=== PATIENT | female | born 1990 | race American Indian/Alaskan Native ===

== ENCOUNTER 2018-04-02 06:09 | Day surgery (SDC) | payer MEDICAID ==
[2018-03-30 07:58] VITALS: BMI 45.5
[2018-04-02] MEDS ORDERED: Lidocaine 2% MPF (5 ml) Inj ONE (07:29)
[2018-04-02] MEDS ORDERED: Bupivacaine 0.25% 20 ML INJ IJ ONE (07:30)
[2018-04-02] MEDS ORDERED: ceFAZolin IV 2 gm in Dextrose 2 GM/50 ML BAG IVPB ONE (07:40)
[2018-04-02] MEDS ORDERED: Lactated Ringer's 1,000 ML IV ONE (08:00)
[2018-04-02] MEDS ORDERED: Propofol 10 mg/ml Inj (20 ML) ONE (08:01)
[2018-04-02] MEDS ORDERED: Midazolam 2 MG/2 ML VIAL ONE ×2 (08:01→08:43)
[2018-04-02] MEDS ORDERED: Dexamethasone 4 mg/1 ml ONE (08:43)
--- NOTE | 2018-04-02 09:06 | PCM.SURG1 ---
Surgeon's Initial Post Op Note - Surgeon's Notes Surgeon: Dr. Mathew London Milk Processing Worker: Dr. Sue PGY-3, Dr. Morales PGY-1 Type of Anesthesia: IV Sedation, Local Anesthesia Administered By: Liz Perez Pre-Operative Diagnosis: right foot hallux valgus deformity Operative Findings: see dictation. 3-0, 4-0 vicryl, 4-0 nylon. 16CC 2% lidocaine, 8 CC 0.5%marcaine plain, 1CC dex 4mg/kg Post-Operative Diagnosis: same Operation Performed: right foot bunionectomy Specimen/Specimens Removed: bone Estimated Blood Loss: EBL {In ML}: 2 Blood Products Given: N/A Drains Used: No Drains Post-Op Condition: Good Date of Surgery/Procedure: 04/02/18 Time of Surgery/Procedure: 09:06
[2018-04-02] MEDS ORDERED: HYDROmorphone 0.5 mg/0.5 ml ISec IVP PRN (09:10)
[2018-04-02] MEDS ORDERED: Oxycodone/Acetaminophen 5/325 mg Tab PO PRN (09:15)
[2018-04-02 11:07] VITALS: TEMP 97.6
--- NOTE | 2018-04-02 12:06 | RAD ---
Date of service: 04/02/2018 PROCEDURE: Right Foot Radiographs. HISTORY: s/p right foot surgery COMPARISON: None. FINDINGS: BONES: Normal. No fracture. JOINTS: Normal. SOFT TISSUES: Subcutaneous air identified at the level of the digits. Adjacent soft tissue swelling noted. OTHER FINDINGS: None. IMPRESSION: Postoperative findings identified.
[2018-04-02 12:22] VITALS: BP 135/73; PULSE 72; RESP 18; O2SAT 99
--- NOTE | 2018-04-03 19:26 | OP ---
Copied To: Valery Sue DPM Attending MD: Mathew London DPM PROCEDURE DATE: 04/02/2018 SURGEON: Mathew London DPM. AUTOMOTIVE SALESPERSON: Valery Sue, PGY-3, Edward Orozco MD, PGY-1. DELIVERY DIRECTOR: Clara Chen MD . ANESTHESIA: IV sedation with local. PREOPERATIVE DIAGNOSIS: Right foot painful hallux valgus deformity. POSTOPERATIVE DIAGNOSIS: Right foot painful hallux valgus deformity. NAME OF PROCEDURE: Right foot first metatarsal osteotomy with cutting of soft tissue and bone. INDICATIONS: The patient is a 27-year-old female with the above-mentioned diagnosis. The patient has exhausted multiple forms of conservative treatment at this time and now requires surgical intervention. The patient signed a consent after careful explanation of risks, benefits, complications, and alternatives for surgical procedure. No guarantees were given nor implied. The patient was brought into the operating room and placed on the operating room table in a supine position. A time-out was performed for identification of the correct patient and procedure. The patient received a total of 16 mL of 2% lidocaine plain in a local block-type fashion to the right foot. Once local anesthesia was achieved, the right foot was then prepped and draped in normal sterile manner and the procedure began. DESCRIPTION OF PROCEDURE: Attention was directed to the dorsal aspect of the first metatarsal head of the right foot, where an approximately 4 cm linear longitudinal incision was made medial and parallel to the tendon of the extensor hallucis longus involving the contour of the deformity. The incision was deepened through subcutaneous tissue with care being taken to identify and retract all vital neurovascular structures. All bleeders were cauterized and ligated as necessary. At this time, an inverted L-type capsulotomy was performed over the dorsal aspect of the first metatarsophalangeal joint. The periosteum and capsular structures were then carefully dissected free of other osseous attachments and resected medially and laterally thus exposing the head of the first metatarsal into the operative field. Next utilizing a sagittal bone saw, the hypertrophied medial eminence was resected and passed from the operative field. All rough edges were smoothed down as necessary. Correction of the deformity was assessed at this time and noted to be excellent. The incision site was then copiously irrigated with sterile normal saline. The periosteum and capsular structures were then reapproximated with 3-0 Vicryl. The subcutaneous tissue was reapproximated with 4-0 Vicryl and the skin was reapproximated with 4-0 nylon. Postoperative injection of 8 mL of 0.5% Marcaine plain and 1 mL of dexamethasone 4 mg/kg was given in the local block-type fashion to the right foot. The postoperative dressing including Xeroform, 4 x 4 gauze, Jackelyn, Coban was applied to the right foot. POSTOPERATIVE CONDITION: The patient tolerated the anesthesia and the procedure well and was escorted to the recovery room with vital signs stable and neurovascular status intact to the right foot. The patient will follow up with Dr. London as an outpatient. Valery Sue DPM <Mathew London DPM>
== END 2018-04-02 12:11 | disposition home or self-care (01) ==
LOC: C.SDS 06:09
PROVIDERS: ATTEND Podiatrist
DX: M21.611 Bunion of right foot (principal); M20.11 Hallux valgus (acquired), right foot
CPT/HCPCS: 28296; 73620; 88304; J0690; J2001; J2250; J2704; J3010; J7120